=== PATIENT | female | born 1985 | race Caucasian/White ===

== ENCOUNTER 2016-05-01 19:32 | Emergency (ER) | payer MEDICAID ==
[~2016-05-01 19:32] MED LIST: ADDERALL 2020 MG/TAB PO; AMOXICILLIN500 M2 PO; CIPRO500 M1 PO; CLEOCIN HCL300 M1 PO; CLINDAMYCIN HC300 MG PO; CYCLOBENZAPRINE5 M1 PO; EFFEXOR XR150 M1 PO; EXCEDRIN EXTRA1 EAC4 PO; FLEXERIL10 MG PO; IBUPROFEN200 M3 PO; MOTRIN600 MG PO; NIZORAL30 GM TP; NO HOME MEDICATION XX; NO HOME MEDS; NO MEDICATIONS; NON-ASPIRIN EX500 M2 PO; NORCO 5-325 TA1 EACH PO; NORCO 5/325 TAB1 TAB PO; NORCO 5/3251 TAB PO; PENICILLIN V P500 M1 PO; PRENATAL; PYRIDIUM200 MG PO; SEPTRA DS TABLE1 TAB PO; VALIUM5 M1 PO; VYVANSE40 M1 PO; XANAX0.25 MG PO; [UNRECOGNIZED DRUG - OTHER] TP
[2016-05-01] MEDS ORDERED: AMOXICILLIN500 M1 PO (20:02)
[2016-05-01] MEDS ORDERED: IBUPROFEN200 M2 PO (20:03)
[2016-05-01] MEDS ORDERED: CLEOCIN HCL300 M1 PO (21:05)
[2016-05-01] MEDS ORDERED: NORCO 5-325 TA1 EACH PO (21:05)
[2016-10-02] MEDS ORDERED: IBUPROFEN800 M1 PO (10:32)
[2016-10-02] MEDS ORDERED: PERCOCET 5-3251 EACH PO ×3 (10:32→11:05)
== END 2016-05-01 21:29 ==
LOC: EDMED 19:32
DX: G89.18 Other acute postprocedural pain (principal); K08.89 Other specified disorders of teeth and supporting structures; F17.200 Nicotine dependence, unspecified, uncomplicated

== ENCOUNTER → 2016-06-06 17:47 | Emergency (ER) | payer MEDICAID ==
[~2016-06-06 17:47] MED LIST changes: +AMOXICILLIN500 M1 PO; +IBUPROFEN200 M2 PO; +IBUPROFEN800 M1 PO; +PERCOCET 5-3251 EACH PO
== END | disposition left against medical advice (07) ==
LOC: EDMED 17:47
DX: Z53.21 Procedure and treatment not carried out due to patient leaving prior to being seen by health care provider (principal)

== ENCOUNTER 2016-06-19 15:23 | Emergency (ER) | payer MEDICAID ==
[~2016-06-19 15:23] MED LIST changes: -IBUPROFEN800 M1 PO; -PERCOCET 5-3251 EACH PO
[2016-06-19] MEDS ORDERED: NORCO 5-325 TA1 EACH PO (15:53)
[2016-10-02] MEDS ORDERED: IBUPROFEN800 M1 PO (10:32)
[2016-10-02] MEDS ORDERED: PERCOCET 5-3251 EACH PO ×3 (10:32→11:05)
== END 2016-06-19 15:55 ==
LOC: EDMED 15:23
DX: M27.3 Alveolitis of jaws (principal); G89.18 Other acute postprocedural pain; Z98.818 Other dental procedure status

== ENCOUNTER 2016-08-03 23:47 | Emergency (ER) | payer MEDICAID ==
[2016-08-04] MEDS ORDERED: AMOXICILLIN500 M2 PO (01:10)
[2016-10-02] MEDS ORDERED: PERCOCET 5-3251 EACH PO ×3 (10:32→11:05)
[2016-10-02] MEDS ORDERED: IBUPROFEN800 M1 PO (10:32)
== END 2016-08-04 01:19 ==
LOC: EDMED 23:47
DX: K02.9 Dental caries, unspecified (principal); F17.200 Nicotine dependence, unspecified, uncomplicated